=== PATIENT | female | born 1955 | race Caucasian/White ===

== ENCOUNTER 2022-01-17 13:22 | Inpatient (IN) | payer BC, OTHER ==
[~2022-01-17] VITALS: Ht 157.5 cm; Wt 58.3 kg
--- NOTE | 2022-01-17 13:39 | NUR ---
[email or web address], medical screening exam in progress
[2022-01-17] MEDS ORDERED: MORPHINE SULFATE 4 MG/1 ML DISP.SYRIN IV ONE ×2 (13:45→15:30)
[2022-01-17] MEDS ORDERED: MORPHINE SULFATE 4 MG/1 ML DISP.SYRIN ONE ×2 (13:46→15:24)
--- NOTE | 2022-01-17 14:23 | NUR ---
Patient is back from CT scan, +nausea now, MD notified.
[2022-01-17] MEDS ORDERED: ONDANSETRON 4 MG/2 ML VIAL ONE (14:24)
[2022-01-17] MEDS ORDERED: ONDANSETRON 4 MG/2 ML VIAL IV ONE (14:30)
[2022-01-17 15:21] LABS: HEMATOCRIT 39.4 % (31.2-41.9); MEAN CORPUSCULAR HEMOGLOBIN 30.5 uug (24.7-32.8); MEAN CORPUSCULAR VOLUME 89.1 fL (75.5-95.3); PLATELET COUNT (AUTO) 258 K/uL (179-408)
--- NOTE | 2022-01-17 15:52 | NUR ---
[email or web address] with spouse discussing the recommended plan of care and the ER tests' results. Iced cold oral swabs given to patient for comfort. Patient is c/o " oral dryness".
--- NOTE | 2022-01-17 16:00 | NUR ---
ER admitting/ER registration staff notified re: plan of care
--- NOTE | 2022-01-17 16:11 | NUR ---
CALLED DR. VELIZ, , FOR MASTER [employer]INEER CONSULT AND LEFT A MESSAGE
[2022-01-17 16:17] LABS: POTASSIUM 3.6 mmol/L (3.5-5.1)
[2022-01-17 16:18] LABS: BILIRUBIN,TOTAL 0.5 mg/dL (0.2-1.0); CREATININE 0.6 mg/dL (0.6-1.3); TOTAL PROTEIN, SERUM 7.4 g/dL (6.4-8.2)
[2022-01-17] MEDS ORDERED: HYDROMORPHONE 1 MG/1 ML DISP.SYRIN IV ONE (16:30)
[2022-01-17] MEDS ORDERED: HYDROMORPHONE 1 MG/1 ML DISP.SYRIN ONE (16:38)
--- NOTE | 2022-01-17 17:02 | NUR ---
Patient refused urinary catheter and bedpan @this time. Patient consented to cut her street clothes.
[2022-01-17] MEDS ORDERED: MAGNESIUM HYDROXIDE 30 ML LIQUID UDC PO PRN (17:45)
[2022-01-17] MEDS ORDERED: ZOLPIDEM 5 MG TABLET PO PRN (17:45)
[2022-01-17] MEDS ORDERED: REMEDY ESSENTIAL ZINC PASTE 113 GM TP PRN (17:45)
[2022-01-17] MEDS ORDERED: ACETAMINOPHEN 325 MG TABLET PO PRN (17:45)
[2022-01-17] MEDS ORDERED: HYDROCODONE/APAP 10-325 MG TABLET PO PRN (17:45)
--- NOTE | 2022-01-17 17:45 | NUR ---
ADMITTED VIA [facility]. ORIENTED TO SURROUNDINGS. EATING DINNER.
--- NOTE | 2022-01-17 17:54 | NUR ---
pending MRSA swab collection for possible surgery, hands off report given to HORACE Gallegos
[2022-01-17 18:00] VITALS: BP 160/72
[2022-01-17] MEDS: IV NS 1000 ML 1,000 ML IV PRN (19:58)
[2022-01-17 20:00] VITALS: BP 127/57
--- NOTE | 2022-01-17 20:00 | NUR ---
RECEIVED PATIENT AWAKE IN BED WITH AT BEDSIDE. PATIENT IS A/O X4. VERY PLEASANT WHEN APPROACHED. DENIES PAIN AT THIS TIME, C/O PAIN WHEN REPOSITIONED OR ADL'S PERFORMED. VS WNL. HEPLOCK INTACT AND PATENT, NOTED TO LEFT HAND #20 GAUGE. ORIENTED PATIENT TO ROOM AND CALL LIGHT. CALL LIGHT IN REACH. BED ALARM ON. ALL NEEDS ATTENDED. WILL CONTINUE TO MONITOR AND ASSESS.
[2022-01-17] MEDS: HYDROMORPHONE 1 MG/1 ML DISP.SYRIN IV PRN (23:17)
[2022-01-17] MEDS: ONDANSETRON 4 MG/2 ML VIAL IV PRN (23:17)
[2022-01-18 00:23] LABS: *BILIRUBIN,URIN NEGATIVE (NEGATIVE); *BLOOD, URINE NEGATIVE (NEGATIVE); *CLARITY,URINE CLEAR (CLEAR); *COLOR,URINE YELLOW (YELLOW); *KETONES,URINE 2+ (NEGATIVE); *UROBILINOGEN,URINE 0.2 E.U./dl (NORMAL); LEUKOCYTE ESTERASE ,URINE NEGATIVE (NEGATIVE); NITRITE, URINE NEGATIVE (NEGATIVE); UGLUCOSE NEGATIVE (NEGATIVE)
[2022-01-18 04:00] VITALS: BP 118/68
[2022-01-18 05:06] LABS: HEMATOCRIT 35.1 % (31.2-41.9); MEAN CORPUSCULAR HEMOGLOBIN 30.7 uug (24.7-32.8); MEAN CORPUSCULAR VOLUME 89.8 fL (75.5-95.3); PLATELET COUNT (AUTO) 219 K/uL (179-408)
[2022-01-18] MEDS: ONDANSETRON 4 MG/2 ML VIAL IV PRN ×2 (05:25→11:54)
[2022-01-18] MEDS: HYDROMORPHONE 1 MG/1 ML DISP.SYRIN IV PRN ×2 (05:25→11:54)
[2022-01-18 05:27] LABS: CREATININE 0.7 mg/dL (0.6-1.3); MAGNESIUM 2.2 mg/dL (1.8-2.4); PHOSPHOROUS 3.2 mg/dL (2.5-4.9)
[2022-01-18] MEDS: IV NS 1000 ML 1,000 ML IV PRN (09:39)
[2022-01-18 12:00] VITALS: BP 133/60
--- NOTE | 2022-01-18 15:15 | NUR ---
Patient transferred to [facility] by ambulance per her request for further care. No s/s of discomfort or distress. IV to left forearm left for emergency and further care. [place] left in place. Belongings sent home with family. Patient aware of POC and that she is NPO for hip surgery tonight. Report to HORACE Melendrez at [facility].
== END 2022-01-18 15:35 | disposition short-term general hospital (02) | DRG 536 ==
LOC: ER 13:24 → MEDSURG3 17:29
PROVIDERS: ADMIT Nurse Practitioner Acute Care; ATTEND Nurse Practitioner Acute Care
DX: S72.142A Displaced intertrochanteric fracture of left femur, initial encounter for closed fracture (principal); W01.0XXA Fall on same level from slipping, tripping and stumbling without subsequent striking against object, initial encounter; Y93.89 Activity, other specified; Y92.512 Supermarket, store or market as the place of occurrence of the external cause; Y99.8 Other external cause status; N83.202 Unspecified ovarian cyst, left side; D72.829 Elevated white blood cell count, unspecified
CPT/HCPCS: 36415; 51702; 72192; 73551; 83735; 84100; 85025; 86850; 86900; 86901; 97161; A4663; G0378; J1170; J2270; J2405